=== PATIENT | male | born 1970 | race Caucasian/White ===

== ENCOUNTER 2024-08-02 12:43 | Outpatient (CLI) | payer OTHER, SELFPAY ==
[2024-08-02 16:01] LABS: Thyroid Stimulating Hormone < 0.015 uIU/mL (0.465-4.680); Total Triiodothyronine (T3) 1.83 NG/ML (0.97-1.69)
[2024-08-02 16:39] LABS: Free T4 Free Thyroxine 0.84 ng/mL (0.78-2.19)
== END 2024-08-02 12:44 | disposition home or self-care (01) ==
LOC: ANHGOSHLAB 12:44
PROVIDERS: PCP Internal Medicine; Visit Provider Internal Medicine
DX: E03.9 Hypothyroidism, unspecified (principal)
CPT/HCPCS: 36415; 84439; 84443; 84480